=== PATIENT | male | born 1985 | race Caucasian/White ===

== ENCOUNTER 2018-02-03 16:16 | Emergency (ER) | payer BC ==
[~2018-02-03] VITALS: Ht 172.7 cm; Wt 71.7 kg
[2018-02-03 16:25] VITALS: Ht 172.7 cm; Wt 71.7 kg
[2018-02-03 18:16] VITALS: BP 123/71
== END 2018-02-03 18:17 | disposition home or self-care (01) ==
LOC: ED 16:16
DX: L02.414 Cutaneous abscess of left upper limb (principal); F17.210 Nicotine dependence, cigarettes, uncomplicated
CPT/HCPCS: J2001

== ENCOUNTER 2018-02-05 15:07 | Emergency (ER) | payer BC ==
[~2018-02-05] VITALS: Ht 172.7 cm; Wt 73.9 kg
[2018-02-05 15:12] VITALS: Ht 172.7 cm; Wt 73.9 kg
[2018-02-05 17:18] VITALS: BP 130/79
== END 2018-02-05 17:10 | disposition home or self-care (01) ==
LOC: ED 15:07
DX: L02.414 Cutaneous abscess of left upper limb (principal); F17.210 Nicotine dependence, cigarettes, uncomplicated

== ENCOUNTER 2018-02-07 13:28 | Emergency (ER) | payer BC ==
[~2018-02-07] VITALS: Ht 165.1 cm; Wt 71.7 kg
[2018-02-07 13:54] VITALS: Ht 165.1 cm; Wt 71.7 kg
[2018-02-07 15:48] VITALS: BP 148/93
== END 2018-02-07 15:48 | disposition home or self-care (01) ==
LOC: ED 13:28
DX: L02.414 Cutaneous abscess of left upper limb (principal); Z48.01 Encounter for change or removal of surgical wound dressing